=== PATIENT | male | born 1945 | race Caucasian/White ===

== ENCOUNTER → 2016-06-17 | Outpatient (CLI) | payer MEDICARE, OTHER ==
[~2016-06-17] MED LIST: CARV6.252 PO; CYAN1000P IM; DIGO0.25 PO; HYDR-3516 PO; OMEP20TA PO; PRIN5TAB PO; PROZ40CA PO; SERO200T PO; SIMV20TA PO; TAMS5CAP PO; VIAG50TA PO; [UNRECOGNIZED DRUG - REMARK]
[2016-06-17 10:52] LABS: ALT (GPT) 18 U/L (12-78); AST (GOT) 16 U/L (15-37); BICARBONATE 27.3 MEQ/L (21.0-32.0); BLOOD UREA NITROGEN 14 MG/DL (7-18); CHLORIDE 105 MEQ/L (98-107); GLOMERULAR FILTRATION RATE 63 ML/MIN (>89); GLUCOSE,FASTING 94 MG/DL (74-99); POTASSIUM 3.9 MEQ/L (3.5-5.1); SODIUM (NA) 139 MEQ/L (136-145)
[2016-06-17 10:53] LABS: ANION GAP 7 MEQ/L (5-15)
[2016-06-17 11:18] LABS: ALKALINE PHOSPHATASE 75 U/L (45-117); HDL CHOLESTEROL 39.9 MG/DL (40.0-60.0); LDL CHOLESTEROL 70 MG/DL (0-99); TOTAL BILIRUBIN ADULT 1.1 MG/DL (0.2-1.0)
== END ==
LOC: CLAB 09:54
PROVIDERS: ATTEND Family Medicine
DX: E78.5 Hyperlipidemia, unspecified (principal); D51.8 Other vitamin B12 deficiency anemias; Z12.5 Encounter for screening for malignant neoplasm of prostate
CPT/HCPCS: 36415; 80053; 80061; 82607; G0103

== ENCOUNTER → 2017-03-31 | Outpatient (CLI) | payer MEDICARE, OTHER ==
[~2017-03-31] MED LIST changes: -CYAN1000P IM; -OMEP20TA PO; +OMEP20TA93 PO
[2017-03-31 10:39] LABS: AUTOMATED NEUTROPHIL # 4.8 TH/MM3 (1.8-7.7); BASOPHIL % 0.6 % (0.0-2.0); EOSINOPHIL # 0.1 TH/MM3 (0-0.4); EOSINOPHIL % 1.5 % (0.0-4.0); HEMATOCRIT 40.8 % (39.0-51.0); HEMOGLOBIN 14.3 GM/DL (13.0-17.0); LYMPH % 18.5 % (9.0-44.0); LYMPHOCYTE # 1.2 TH/MM3 (1.0-4.8); MEAN CELL VOLUME 98.1 FL (80.0-100.0); MEAN CORPUSCULAR HEMOGLOBIN 34.4 PG (27.0-34.0); MEAN PLATELET VOLUME 8.2 FL (7.0-11.0); MONO % 8.1 % (0.0-8.0); MONOCYTE # 0.5 TH/MM3 (0-0.9); NEUT % 71.3 % (16.0-70.0); PLATELET COUNT 181 TH/MM3 (150-450); RED BLOOD COUNT 4.15 MIL/MM3 (4.50-5.90); RED CELL DISTRIBUTION WIDTH 12.7 % (11.6-17.2); WHITE BLOOD COUNT 6.8 TH/MM3 (4.0-11.0)
[2017-03-31 11:33] LABS: ALT (GPT) 25 U/L (12-78); CHOLESTEROL 181 MG/DL (120-200); TRIGLYCERIDES 167 MG/DL (42-150)
[2017-03-31 11:34] LABS: AST (GOT) 25 U/L (15-37); BICARBONATE 27.3 MEQ/L (21.0-32.0); BLOOD UREA NITROGEN 10 MG/DL (7-18); CALCIUM 9.1 MG/DL (8.5-10.1); CHLORIDE 103 MEQ/L (98-107); CREATININE 1.08 MG/DL (0.60-1.30); GLOMERULAR FILTRATION RATE 67 ML/MIN (>89); GLUCOSE,FASTING 82 MG/DL (74-99); SODIUM (NA) 138 MEQ/L (136-145)
[2017-03-31 11:37] LABS: ALKALINE PHOSPHATASE 78 U/L (45-117); CHOLESTEROL/ HDL RATIO 4.94 RATIO; HDL CHOLESTEROL 36.6 MG/DL (40.0-60.0); LDL CHOLESTEROL 111 MG/DL (0-99); TOTAL BILIRUBIN ADULT 0.9 MG/DL (0.2-1.0); TOTAL PROTEIN 7.9 GM/DL (6.4-8.2)
== END ==
LOC: CLAB 10:06
PROVIDERS: ATTEND Family Medicine
DX: I10 Essential (primary) hypertension (principal)
CPT/HCPCS: 36415; 80053; 80061; 85025

== ENCOUNTER 2017-05-22 08:20 | Day surgery (SDC) | payer MEDICARE, OTHER ==
[~2017-05-22] VITALS: Ht 176.5 cm; Wt 88.0 kg
[2017-05-22 09:11] VITALS: BP 144/101; PULSE 60; RESP 18; TEMP 98.6; O2SAT 97
[2017-05-22] MEDS ORDERED: CHLORHEXIDINE GLUCONATE 2 % 1 PACK (2 CLOTHS) TOPICAL PRN (09:15)
[2017-05-22] MEDS ORDERED: LACTATED RINGER'S 1000 ML IV PRN (09:15)
[2017-05-22] MEDS ORDERED: SODIUM CHLORID 0.9% 500 ML IV PRN (09:15)
[2017-05-22] MEDS ORDERED: INSULIN HUMAN REGULAR 1,000 UNITS/10 ML VIAL SQ PRN (09:15)
[2017-05-22] MEDS ORDERED: LORazepam 1 MG TAB SL SCH (09:15)
[2017-05-22] MEDS ORDERED: NS 1000 ML IV SCH (09:15)
[2017-05-22] MEDS ORDERED: METOPROLOL TARTRATE 25 MG TAB PO PRN (09:15)
[2017-05-22] MEDS ORDERED: CHLORHEXIDINE GLUCONATE 2 % 1 PACK (2 CLOTHS) TOPICAL SCH (09:15)
[2017-05-22] MEDS ORDERED: POVIDONE IODINE 5% (ANTISEPSIS KIT) 4 APPLICATIONS EACH NARE PRN (09:15)
[2017-05-22] MEDS ORDERED: VANCOMYCIN 1000 MG/NS 250 ML IV SCH ×2 (09:15)
[2017-05-22] MEDS ORDERED: NO Heparin, Lovenox, Coumadin at least 12 hours prior to procedure. PRN (09:15)
[2017-05-22] MEDS ORDERED: MUPIROCIN 2% OINT 1 APPLIC/GM SYR NASAL SCH (09:15)
[2017-05-22] MEDS: POVIDONE IODINE 5% (ANTISEPSIS KIT) 4 APPLICATIONS EACH NARE SCH ×2 (09:17→10:59)
[2017-05-22] MEDS ORDERED: CYAN100017 (09:29)
[2017-05-22 09:32] LABS: AUTOMATED NEUTROPHIL # 4.2 TH/MM3 (1.8-7.7); BASOPHIL % 0.6 % (0.0-2.0); EOSINOPHIL # 0.2 TH/MM3 (0-0.4); EOSINOPHIL % 2.6 % (0.0-4.0); HEMATOCRIT 40.8 % (39.0-51.0); LYMPH % 24.8 % (9.0-44.0); LYMPHOCYTE # 1.6 TH/MM3 (1.0-4.8); MEAN CELL VOLUME 96.9 FL (80.0-100.0); MEAN CORPUSCULAR HEMOGLOBIN 33.1 PG (27.0-34.0); MEAN CORPUSCULAR HGB CONC 34.2 % (32.0-36.0); MEAN PLATELET VOLUME 8.2 FL (7.0-11.0); MONO % 8.3 % (0.0-8.0); MONOCYTE # 0.5 TH/MM3 (0-0.9); NEUT % 63.7 % (16.0-70.0); PLATELET COUNT 217 TH/MM3 (150-450); RED BLOOD COUNT 4.22 MIL/MM3 (4.50-5.90); WHITE BLOOD COUNT 6.6 TH/MM3 (4.0-11.0)
[2017-05-22 09:35] LABS: INTERNATIONAL NORMALIZED RATIO 1.1 RATIO; PROTHROMBIN TIME - PATIENT 10.9 SEC (9.8-11.6)
[2017-05-22 09:53] LABS: BICARBONATE 26.1 MEQ/L (21.0-32.0); CALCIUM 8.4 MG/DL (8.5-10.1); CREATININE 1.14 MG/DL (0.60-1.30)
[2017-05-22] MEDS ORDERED: LIDOCAINE HCL 1% PF 5 ML SYRINGE OTHER ONE (12:00)
[2017-05-22] MEDS ORDERED: PROPOFOL 200 MG/20 ML AMP IV ONE (12:00)
[2017-05-22] MEDS ORDERED: VANCOMYCIN 500 MG VIAL ONE (12:36)
[2017-05-22] MEDS ORDERED: LIDOCAINE HCL 2% 50 ML VIAL ONE (12:36)
[2017-05-22] MEDS ORDERED: ceFAZolin INJ 1,000 MG VIAL ONE (12:36)
--- NOTE | 2017-05-22 15:03 | CATHPROC ---
Patient Name: ONIEL FONSECA Study #: [id number] Initial MD: Stephanie Burks Date of : 1945 Study Date: 05/22/2017 Cardiac Catheterization Report 05/22/2017 3:03:13 PM Financial #: [id number] 1 of 8 Patient Name: ONIEL FONSECA Study #: [id number] Initial MD: Stephanie Burks Date of : 1945 Study Date: 05/22/2017 Entire Case Report Patient Information Patient Name ONIEL FONSECA Date of 1945 Age 71 years Financial # [id number] Gender M AlternateID Lab Number 6 Room Number DC08 Height (in) 69.5 Height (cm) 176.5 BSA 2.05 Weight (lbs) 193.6 Weight (kg) 88.0 Patient Address/Phone Number Home Address [facility] Home Phone Number [address] [address] [facility] [address] Study Information Study Number Admission Scheduled Start Study Start [id number] May 22 2017 8:20AM 05/22/2017 May 22 2017 12:28PM [place] [facility] Cardiac Pacer/ICD Admit Source Facility Department Other [facility] - Chief Design Drafter Physician and Clinical Staff Initial Stephanie Polk Powertrain Calibration Engineer Brittany Soni,HIMANSHU Other Anesthesia, COIL ASSEMBLER Recorder Amie Shannon,CHARLA TECH2 Scrub Luis Miguel Disla,RT(R) 05/22/2017 3:03:13 PM Financial #: [id number] 2 of 8 Patient Name: ONIEL FONSECA Study #: [id number] Initial MD: Stephanie Burks Date of : 1945 Study Date: 05/22/2017 Equipment Time Embossing Press Operator Apprentice Description Size Mfg Part Number Used/Scraped DEFIBRILLATOR, JADYNIA 7 -T 15:01 BIOTRONIK VDE-DDDR [id number] Used PROMRI DERMABOND, ADHESIVE SKIN VM12 12:59 CORDIS/PACER * Used GLUE MINI *[id number] DERMABOND, ADHESIVE SKIN VM12 12:29 CORDIS/PACER * Used GLUE MINI *[id number] TP-1103 12:29 MEDLINE INDUSTRIES SUTURE, STRIP PLUS 1/2" * Used *[id number] TP-1103 12:59 MEDLINE INDUSTRIES SUTURE, STRIP PLUS 1/2" * Used *[id number] 12:59 MEDLINE PACER KEARNS, LIMB * 2530 *[id number] Used 12:29 MEDLINE PACER KEARNS, LIMB * 2530 *[id number] Used [id number] 12:29 MEDLINE PACER PACK, PACER CUSTOM * Used *[id number] 12:59 MEDLINE PACER PACK, PACER CUSTOM * Used *[id number] 12:46 Needle Sponge Count 2 22 Used 12:46 Needle Sponge Count 2 2 Used 12:46 Needle Sponge Count 20 200 Used SUTURE, 2-0 VICRYL [CT1] ([id number]) SUTURE, 2-0 VICRYL [CT1] ([id number]) [id number] 12:59 [employer],WARM AIR CCL * Used *[id number] 12:29 [employer],WARM AIR CCL * Used *[id number] [facility] PAD, ELECTROSURGICAL 12:29 * [id number] *[id number] Used SURGICAL GROUNDING ORANGE [facility] PAD, ELECTROSURGICAL 12:59 * [id number] *[id number] Used SURGICAL GROUNDING ORANGE Equipment Model, Serial, Lot Number and Expiration Data Description Model Number Serial Number Lot Number Expiration Date DEFIBRILLATOR, IMPERIA 7 ABIMBOLA [id number] 09-26-2018 [facility] Insurance Information Insurance Payor Medicare, Private Health Insurance Third Constitution Party Third Constitution Party Number MEDICARE A B MCRAB History: Allergies Allergy Reaction No Known Allergies 05/22/2017 3:03:13 PM Financial #: [id number] 3 of 8 Patient Name: ONIEL FONSECA Study #: [id number] Initial MD: Stephanie Burks Date of : 1945 Study Date: 05/22/2017 History: Risk Factors Previous IA Yes Labs Hgb (g/dl) Hct (%) WBC (l/cumm) Platelets (thousands) 11.60-17.00 35.00-51.00 4.00-11.00 150.00-450.00 14.0 40.8 6.6 217 Glucose (mg/dl) BUN (mg/dl) Creatinine (mg/dl) BUN:Creatinine (1:x) 74.00-106.00 7.00-18.00 0.50-1.30 10.00-20.00 102 13 1.1 11.8 Na (meq/l) K (meq/l) 136.00-145.00 3.50-5.10 138 3.4 INR (PTT:PT) 0.90-1.10 1.1 CPK-MB (ng/ML) 0.50-3.60 Not Drawn Medication Medication Total Dose (Bolus/Oral) Medication Total Dosage/Unit 2% XYLOCAINE 50 mL Medications (Bolus/Oral) Medication Time Given Dosage/Unit Administered By Reason 2% XYLOCAINE 05/22/2017 12:53:34 PM 50 mL Stephanie Burks 50 mL 2% XYLOCAINE given in lab by Stephanie Burks via Subcutaneous. 05/22/2017 3:03:13 PM Financial #: [id number] 4 of 8 Patient Name: ONIEL FONSECA Study #: [id number] Initial MD: Stephanie Burks Date of : 1945 Study Date: 05/22 Medication (Drip) Medication Time Given Dosage/Unit Concentration/Unit Diluent (ml) Solut ion ANCEF 05/22/2017 12:53:32 PM 2 g 2 g ANCEF given in lab by Anesthesia, COIL ASSEMBLER in Right Antecubital via Peripheral IV. Ordered by Stephanie Burks. IV Solutions 05/22/2017 12:42:58 PM 0 mL (IV) 500 NaCl .9 Patient arrived on IV Solutions in Right Antecubital via Peripheral IV. Pump/Drip Flow = 20 ml/hr usi ng NaCl .9. IV Solutions 05/22/2017 12:48:29 PM 0 mL (IV) 500 NaCl .9 Patient arrived on IV Solutions in Left Forearm via Peripheral IV. Pump/Drip Flow = 20 ml/hr using Na Cl .9. VANCOMYCIN DRIP 05/22/2017 12:53:51 PM 1 g 1 g VANCOMYCIN DRIP given in lab by Anesthesia, COIL ASSEMBLER in Right Antecubital via Peripheral IV. Ordered by Stephanie Burks. Initial Case Assessment Cardiovascular HR NIBP Chest Pain 60 182/99 0 Neurological State Oriented to time-place- Alert Moves all extremities person Respiration - General Respiration Rate SpO2 (%) (B/min) 20 97 Final Case Assessment Cardiovascular HR Rhythm NIBP Chest Pain 66 sr 122/65 0 Neurological State Oriented to time-place- Alert Moves all extremities person Respiration - General Respiration Rate SpO2 (%) (B/min) 21 97 Vitals Summary Pain Time HR NIBP SpO2 Resp Temp EtCO2 Apnea Izabel Payne Comment Level 12:43:08 60 182/99 97.0 21 10 0 2 13:15:33 66 122/65 97.0 21 Izabel Score Summary Time Activity Resp Circ LOC Color Total Score 12:43:08 2 2 2 2 2 10 05/22/2017 3:03:13 PM Financial #: [id number] 5 of 8 Patient Name: ONIEL FONSECA Study #: [id number] Initial MD: Stephanie Burks Date of : 1945 Study Date: 05/22/2017 Izabel Score Definition Table Activity - 0 Activity - 1 Activity - 2 No Movement to Command Weak Hand Grasp Lift Head, Good Hand Grasp Respiration - 0 Respiration - 1 Respiration - 2 Apneic or Obstructed Shallow Breath, Airway Adjunct Deep Breath, Cough Freely Circulation - 0 Circulation - 1 Circulation - 2 B/P > 50% Admission B/P B/P > 20-50% Admission B/P B/P Stable X3 Level of Consciousness - 0 Level of Consciousness - 1 Level of Consciousness - 2 Not Responding Arousable On Calling Awake and Aware Color - 0 Color- 1 Color - 2 Cyanotic Lips, Nailbed, Skin Pale, Dusky [place] Or Normal Chronological Log Time Study Chronological Log 12:25:21 Patient arrived via Bed. 12:28:52 Patient Name, D.O.B, / Armband Verified By R.N. 12:28:53 Consent signed by the physician and the patient and verified by the Chief Design Drafter staff. 12:28:54 Pre-op and post- op instructions given; patient acknowledges understanding of instruction s. 12:28:56 Presedation assessment performed by Chief Design Drafter RN. 12:28:57 Patient has been NPO for More than 6Hrs. 12:28:59 Verbal Stimulation=2 Physical Stimulation=2 Airway=2 Respiration=2 TOTAL=8. (0=absent, 1= limited, 2=present) 12:30:30 MD arrived. 12:40:31 Anesthesia at bedside. Assumes care of patient. 12:41:49 Disposable Defibrillator Pads Placed On Patient. 12:41:50 Bovie ground pad applied to: right upper thigh 12:41:53 Anesthesia at bedside. ANNELIESE Virgen and Andrew Uribe student Assumes care of patient . 12:41:56 2% CHLORHEXIDINE GLUCONATE WASH AND NASAL SWIPE DONE PRIOR TO PROCEDURE. 12:42:47 Patient has been NPO for More than 6Hrs. 12:42:48 Skin Breakdown-none per pt 12:42:53 Sergio Prominences Protected 12:42:57 A # 20 IV was noted in the Antecubital (right). Grade = 0 12:42:58 Patient arrived on IV Solutions in Right Antecubital via Peripheral IV. Pump/Drip Flow = 20 ml/hr using NaCl .9. 12:43:00 History and physical on the chart or being dictated. 12:43:08 HR=60 bpm, ZLGW=282/99 mmhg, SpO2=97.0 %, Resp=21 B/min, Pain=0, Izabel=10, Payne=2 12:43:10 Reference ECG taken Assessment: Initial Case, HR=60 BPM, GFML=103/99 mmhg, Chest Pain=0 12:43:41 Neurological: State=Alert, Ox3, GL[place] Respiration: Resp=20 B/min, SpO2=97 % 05/22/2017 3:03:13 PM Financial #: [id number] 6 of 8 Patient Name: ONIEL FONSECA Study #: [id number] Initial MD: Stephanie Burks Date of : 1945 Study Date: 05/22/2017 First Sponge And Instrument Count Done by Luis Miguel Disla, RT(R). 12:45:29 Hypo's: 2, Sponges: 20, Bovie/scratch: 2 Sutures: 2, Blades: 1, Instruments: 26, Syveck Patches: 0 12:47:13 A # 20 IV was noted in the Forearm (left). Grade = 0 12:48:29 Patient arrived on IV Solutions in Left Forearm via Peripheral IV. Pump/Drip Flow = 20 ml/h r using NaCl .9. 12:50:00 Existing Lead placements verified under fluoroscopy prior to first incision. Time Out. Correct patient, procedure, procedure equipment, site and side verified with physicia n present. Time 12:53:24 concurred by MD, individual staff and COIL ASSEMBLER. Time Out #2 - Consents verified, patient in correct position, all results are labled and displa yed, safety precautions 12:53:27 taken, antibiotics administered. Time out concurred by MD, individual staff and COIL ASSEMBLER in procedu re 12:53:32 Case Start 12:53:32 2 g ANCEF given in lab by Anesthesia, COIL ASSEMBLER in Right Antecubital via Peripheral IV. Ordered by Stephanie Burks. 12:53:34 50 mL 2% XYLOCAINE given in lab by Stephanie Burks via Subcutaneous. 1 g VANCOMYCIN DRIP given in lab by Anesthesia, COIL ASSEMBLER in Right Antecubital via Peripheral IV. Or dered by Vitaliy 12:53:51 Stephanie. 12:55:07 Surgical Incision Made. 12:56:23 A pocket was opened at the L Upper Chest. 12:59:10 A device was explanted. 12:59:20 Pocket flushed with antibiotic solution An Iperia 7 DR-T was connected and placed in the pocket. Iperia 7 DR-T [REF [id number], SN [id number] , Exp 12:59:40 09/26/2018] 13:01:51 Closing the pocket Second Sponge And Instrument Count Done by Luis Miguel Disla, RT(R). 13:02:23 Hypo's: 2, Sponges: 20, Bovie/scratch: 2 Sutures: ~SUTURE~, Blades: 1, Instruments: 26, Syveck Patches: 0 13:12:54 The pocket was closed. 13:13:02 Implant Procedure was performed. 13:13:10 A ICD Implant . (Dual) Gen Change The Final Sponge And Instrument Count Done by Luis Miguel Disla RT(R). 13:13:59 Hypo's: 2, Sponges: 20, Bovie/scratch: 2 Sutures: 3, Blades: 1, Instruments: 26, Syveck Patches: ~SYVECK PATCH~ 13:14:48 Dermabond applied to site. 13:15:22 Steri-strips and a sterile dressing applied to site. 13:15:33 HR=66 bpm, OBXM=209/65 mmhg, SpO2=97 %, Resp=21 B/min 13:26:40 Patient moved to bed Assessment: Final Case, HR=66 BPM, Rhythm=sr, KWIM=930/65 mmhg, Chest Pain=0 13:27:47 Neurological: State=Alert, Ox3, GLOVER Respiration: Resp=21 B/min, SpO2=97 % 13:28:06 Patient tranported to DOCU. 05/22/2017 3:03:13 PM Financial #: [id number] 7 of 8 Patient Name: ONIEL FONSECA Study #: [id number] Initial MD: Stephanie Burks Date of : 1945 Study Date: 05/22/2017 End Study - Contrast Media Used In Study Contrast Total Opened (mL) Total Used (mL) Total Wasted (mL) Unspecified 0 0 0 End Study - Maximum Contrast Load Max Contrast Load (mL) 400.0 End Study - Radiation Exposure Fluoro Time (minutes) 0.1 End Study - Patient Disposition Complications Transferred To Interventional Outcome No Telemetry Bed successful 05/22/2017 3:03:13 PM Financial #: [id number] 8 of 8
--- NOTE | 2017-05-23 00:06 | EKG ---
Date Performed: 05/22/2017 Time Performed: 09:20:44 PTAGE: 71 years EKG: Possible ectopic atrial rhythm. Borderline ECG PREVIOUS TRACING : 11/25/2012 18.25 DOCTOR: Stephanie Burks Interpretating Date/Time 05/23/2017 00:00:37
--- NOTE | 2017-05-30 15:34 | PD.CARD ---
Dual Defib Replacement PROCEDURE DATE: May 22, 2017 Dual Defib Replacement PROCEDURE 1. Single chamber defibrillator removal. 2. Single chamber defibrillator replacement. 3. Pocket revision. Mr. Jane is a 71 -year-old male with congestive heart failure, dilated cardiomyopathy 45% (), defibrillator currently end of life , admitted for generator replacement. The risks, the nature and the benefit of the procedure clearly stated to him. The risks include pneumothorax, cardiac perforation, stroke and even . He understood and agreed to proceed. PROCEDURE After written informed consent was obtained, the patient was brought to the EP lab where he was prepped and draped in the usual sterile fashion. Conscious sedation was initiated and maintained throughout the procedure by anesthesiologist. Once sedation was verified, the left infraclavicular area was anesthetized with 2% Xylocaine. Using #11 blade scalpel, a 3-cm incision was made over the existing generator. The incision was then taken down deep fascial layers generator exposed. Once exposed, it was removed from the pocket. Scar tissue was removed around the lead pocket revision was performed. Pocket was expanded. Then, the lead was disconnected from the generator and tested. After adequate pacing and sensing thresholds were obtained. The lead was connected to the new generator and placed into the pocket. I then proceeded with wound closure. The deep fascial layer was approximated using 2-0 Vicryl suture in a continuous fashion. The subcutaneous layer was approximated using 2-0 Vicryl suture in a continuous fashion. The subcuticular layer was approximated using 2-0 Vicryl suture in a continuous fashion. Dermabond adhesive was applied to the wound followed by sterile pressure dressing. There was no complication. The patient tolerated procedure. Blood loss minimal. 1. Explanted hardware: The explanted defibrillator is a Biotronik. For information about existing lead please refer to previous dictation. 2. Implanted hardware: The implanted defibrillator generator is a FlightOffice, model number [id number], serial number [id number]. 3. Threshold: The right ventricular pacing threshold in the bipolar mode was 1.0 volts at 0.4 milliseconds. Lead impedance 395 ohms and R-wave at 6.3 mV. P wave @ 1.3 mv 4. Settings: The device is set in a VVI 40. Defibrillatory portioned for two zones, one zone for ventricular tachycardia between 160 to 240 beats per minute. Initial therapy consists of one burst of ATP, one ramp, 81%, 10 pulses, 10 ms decremental followed by 20 then 30 and all subsequent shocks at 40 joules defibrillatory shock. Second zone for ventricular fibrillation above 240 beats per minute, first therapy at 30 and all subsequent shocks at 40 joule defibrillatory shock. CONCLUSIONS Successful defibrillator removal, defibrillator replacement. COMMENT/RECOMMENDATIONS The patient will be transferred to telemetry unit. He will be observed, when stable can be discharged home Stephanie Burks MD May 30, 2017 15:34
== END 2017-05-22 16:09 | disposition home or self-care (01) ==
LOC: HDOC 08:20 → HDIC 08:21 → HDOC 16:09
PROVIDERS: ATTEND Internal Medicine Interventional Cardiology
DX: Z45.02 Encounter for adjustment and management of automatic implantable cardiac defibrillator (principal); I50.9 Heart failure, unspecified; I42.0 Dilated cardiomyopathy; I49.01 Ventricular fibrillation; I47.2 Ventricular tachycardia; Z01.818 Encounter for other preprocedural examination
CPT/HCPCS: 00530; 33263; 80048; 85025; 85610; 85730; 86850; 86900; 86901; 93005; C1721; J0690; J3370